=== PATIENT | male | born 1935 | race Caucasian/White ===

== ENCOUNTER → 2016-10-01 | Outpatient (CLI) | payer MEDICARE, OTHER | LOC: GMAJ 10:39 | PROVIDERS: ATTEND Family Medicine | DX: Z12.5 Encounter for screening for malignant neoplasm of prostate (principal) ==

== ENCOUNTER → 2017-04-30 | Outpatient (CLI) | payer MEDICARE, OTHER ==
--- NOTE | 2017-05-02 14:44 | US ---
EXAM DESCRIPTION: Venous,Lower Extremity LT CLINICAL HISTORY: LOWER LIMB EDEMA COMPARISON: None Available. TECHNIQUE: Left lower extremity venous duplex FINDINGS: Doppler evaluation of the left lower extremity deep veins was performed. Normal color flow is seen in the common femoral, superficial femoral, profunda femoral and greater saphenous veins. Normal flow is seen in the popliteal vein and veins below the knee in the calf. Normal venous compressibility and flow augmentation. IMPRESSION: Negative for evidence of deep venous thrombosis on left lower extremity venous Doppler sonogram. Electronically signed by: Memo Camarena MD 05/02/2017 2:44 PM [employer] ASSESSMENT SPECIALIST
== END ==
LOC: US 10:30
PROVIDERS: ATTEND Family Medicine
DX: R60.0 Localized edema (principal)

== ENCOUNTER → 2017-05-27 | Outpatient (CLI) | payer MEDICARE, OTHER ==
--- NOTE | 2017-05-28 09:19 | US ---
EXAM DESCRIPTION: Carotid Duplex: ULTRASOUND. CLINICAL HISTORY: CAROTID BRUIT COMPARISON: Ultrasound of the lower extremity arterial systems bilaterally on this visit. TECHNIQUE: Transcutaneous scanning utilizing 2-dimensional and Doppler modes to evaluate the bilateral carotid systems and vertebral arteries. Percentage of diameter of stenosis or no stenosis recorded will be based upon NASCET criteria. FINDINGS: Peak systolic/end diastolic (CM-Sec) CCA Right 100/89 Left 160/17. ICA Right proximal 81/12, mid 98/16. Left proximal 95/18, mid 126/23. Vertebral Right 40/11 Left 76/12. ECA (PS Only) Right 185 left 167. ICA/CCA peak systolic ratio: Right 1.0 Left 0.8 ICA/CCA end diastolic ratio: Right 1.9 Left 1.3 Vertebral arteries: antegrade flow. Comments Comments: Atherosclerotic calcification at the right CCA bulb. Area stenosis 14 %, diameter stenosis 17%. Calcification also in the left CCA bulb. Area stenosis 20%; diameter stenosis 17%. IMPRESSION: 1. Doppler evaluation of the bilateral carotid systems and vertebral arteries shows no hemodynamically significant stenoses. 2. No significant amount of plaque seen in the carotid arteries bilaterally. Bilateral vertebral arteries showed antegrade-cephalad flow. Electronically signed by: Nic Nguyễn MD 05/28/2017 9:16 AM CDT
--- NOTE | 2017-05-28 09:21 | US ---
EXAM DESCRIPTION: Extremity,Lower [place] Arteries: Ultrasound. CLINICAL HISTORY: LOCALIZED EDEMA COMPARISON: Duplex ultrasound evaluation of the carotid and vertebral arteries on this visit. TECHNIQUE: Doppler evaluation of the bilateral lower extremity arterial flow waveforms and velocities. FINDINGS: Arterial waveforms in the right lower extremity are all triphasic. Arterial waveforms in the left lower extremity are all triphasic. Comments: None. IMPRESSION: Doppler ultrasound evaluation of the bilateral lower extremity arterial systems showing no evidence of significant atherosclerotic occlusive disease. Electronically signed by: Nic Nguyễn MD 05/28/2017 9:19 AM CDT
== END ==
LOC: US 13:05
PROVIDERS: ATTEND Family Medicine
DX: I65.23 Occlusion and stenosis of bilateral carotid arteries (principal); R60.0 Localized edema

== ENCOUNTER → 2018-07-02 | Outpatient (CLI) | payer MEDICARE, OTHER | LOC: RESP 11:13 | PROVIDERS: ATTEND Family Medicine | DX: R94.31 Abnormal electrocardiogram [ECG] [EKG] (principal) ==

== ENCOUNTER → 2019-04-30 | Outpatient (CLI) | payer MEDICARE, OTHER | LOC: GMAJ 10:46 | PROVIDERS: ATTEND Family Medicine | DX: Z12.5 Encounter for screening for malignant neoplasm of prostate (principal); I10 Essential (primary) hypertension ==

== ENCOUNTER → 2020-05-11 | Outpatient (CLI) | payer OTHER | LOC: GMAJ 13:26 | PROVIDERS: ATTEND Family Medicine | DX: N40.1 Benign prostatic hyperplasia with lower urinary tract symptoms (principal); I10 Essential (primary) hypertension ==